=== PATIENT | male | born 1930 | race Caucasian/White ===

== ENCOUNTER 2016-09-28 13:59 | Emergency (ER) | payer MEDICARE, BC ==
[2016-09-28] MEDS ORDERED: HYDROMORPHONE HCL 1 MG/ML SYRINGE ONE (14:51)
[2016-09-28] MEDS ORDERED: ONDANSETRON 4 MG/2ML 2 ML VIAL ONE (14:51)
[2016-09-28] MEDS ORDERED: SODIUM CHLORIDE 0.9% 1,000 ML ONE (15:07)
[2016-09-28 15:19] LABS: ABSOLUTE NEUTROPHIL COUNT 8.2 K/mm3 (1.8-7.7); BASO % 0.2 % (0.2-1.0); EOS % 0.3 % (0.9-2.9); HEMATOCRIT 38.5 % (32.0-52.0); HEMOGLOBIN 12.9 gm/l (14.0-18.0); IMM NEUT% 0.4 % (0-1); LYMPH # 1.1 (1.0-4.8); LYMPH % 10.5 % (15-45); MEAN CELL VOLUME 95.5 fl (80.0-94.0); MEAN CORPUSCULAR HGB CONC 33.5 g/dl (33.0-37.0); MEAN PLATELET VOLUME 11.7 fl (7.4-10.4); MONO # 0.9 (0.0-0.8); MONO % 8.7 % (4-12); NEUT % 79.9 % (43-75); PLATELET COUNT 139 K/mm3 (130-400); RED CELL DISTRIBUTION WIDTH 12.6 % (11.5-14.5)
[2016-09-28 15:36] LABS: PLATELET ESTIMATE NORMAL (NORMAL)
[2016-09-28 15:38] LABS: ALB/GLOB RATIO 1.5 (>1.0); ALBUMIN 3.6 gm/dL (3.5-5.7)
--- NOTE | 2016-09-28 15:49 | RAD ---
LEFT SHOULDER 3 VIEWS HISTORY: Status post fall with left shoulder pain.. External rotation, Grashey, and transscapular views of the left shoulder. COMPARISON: None. ALIGNMENT: Relative elevation of the humeral head.. FRACTURE: No displaced acute fracture. ACROMIOCLAVICULAR JOINT: Minor degeneration. GLENOHUMERAL JOINT: Severe degeneration. ABNORMAL CALCIFICATIONS: None. VISIBLE LUNG BEDOYA: Evidence of prior sternotomy. Aortic arch calcification.. IMPRESSION: No gross malalignment or displaced acute fracture. Severe glenohumeral joint degeneration. Elevation of humeral head suggests rotator cuff tendinopathy.
--- NOTE | 2016-09-28 15:51 | RAD ---
LUMBAR SPINE 3 VIEWS HISTORY: Status post fall with low back pain. Frontal, lateral, and frontal cone down views of lumbar spine acquired. COMPARISON: None. ALIGNMENT: Mild dextroconvex curvature. Minor retrolisthesis at L1 to and L2-3 levels.. DISC SPACES: Severe narrowing at the L4-5 and L5-S1 levels, moderate to severe narrowing at L3-4.. COMPRESSION DEFORMITY: Moderate compression deformity of the L1 vertebra with mild associated retropulsion.. FACET JOINTS: Moderate degeneration at L4-5.. DISPLACED FRACTURE FRAGMENT: Minor retropulsion of posterior superior corner of L1.. 1. IMPRESSION: 2. Moderate compression fracture of the L1 vertebra with mild associated retropulsion. 3. Prominent changes of lower lumbar spondylosis with severe disc degeneration at the L4-5 and L5-S1 levels.
[2016-09-28 15:53] LABS: SPECIFIC GRAVITY 1.015 (1.001-1.030); URINE BILIRUBIN NEGATIVE (NEGATIVE); URINE BLOOD 1+ (NEGATIVE); URINE GLUCOSE (UA) NEGATIVE (NEGATIVE); URINE LEUKOCYTE ESTERASE TRACE (NEGATIVE); URINE NITRITE NEGATIVE (NEGATIVE); URINE PROTEIN NEGATIVE (NEGATIVE); URINE UROBILINOGEN NORMAL (0-1 mg/dl)
--- NOTE | 2016-09-28 15:53 | RAD ---
LEFT HIP AND AP PELVIS SERIES HISTORY: Status post fall with left hip pain.. Frontal view of the pelvis with frontal and frog-leg lateral views of the left hip. Correlation against 02/11/2012 study. PELVIC RING: Grossly intact. Interval right hip arthroplasty. HIP ALIGNMENT: Grossly unremarkable. HIP JOINT SPACES: Progressive superior joint space narrowing on the left compatible with severe osteoarthritic change. FRACTURE: No displaced fracture identified. Lumbar spine: Evidence of lower lumbar disc degeneration. IMPRESSION: 1. 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 2. Post arthroplasty appearance of the right hip. 3. Evidence of prominent lower lumbar disc degeneration.
--- NOTE | 2016-09-28 15:55 | RAD ---
PORTABLE CHEST RADIOGRAPH HISTORY: Status post fall 3 days ago. Frontal portable chest radiograph dated 09/28/2016. COMPARISON: None. FINDINGS: FOCAL AIRSPACE OPACITY: No gross airspace consolidation. PLEURAL EFFUSION: None. CARDIOMEDIASTINAL SILHOUETTE: Mild cardiomegaly with aortic tortuosity. Multiple surgical clips, correlate for prior bypass surgery. PNEUMOTHORAX: None identified. OSSEOUS STRUCTURES: Degenerative change of the shoulder girdle. IMPRESSION: No acute cardiopulmonary process noted. Correlate for prior bypass procedure. Degenerative change of the shoulder girdle.
[2016-09-28 16:04] LABS: URINE APPEARANCE SL CLOUDY; URINE COLOR YELLOW
[2016-09-28 16:13] LABS: URINE BACTERIA 3+; URINE EPITHELIAL CELLS 0-2 /hpf; URINE RBC 0-2 /hpf
[2016-09-28] MEDS ORDERED: CEFTRIAXONE 1 GRAM DUPLEX 50 ML IV ONE (16:28)
[2016-09-28 17:10] LABS: INR 1.54; PROTHROMBIN TIME 16.6 SECONDS (9.3-11.4)
== END 2016-09-28 18:12 | disposition home or self-care (01) ==
LOC: ED 13:59
DX: S32.019A Unspecified fracture of first lumbar vertebra, initial encounter for closed fracture (principal); N39.0 Urinary tract infection, site not specified; Z79.899 Other long term (current) drug therapy; W19.XXXA Unspecified fall, initial encounter
CPT/HCPCS: 85025; 87086; 80053; 87186; 85610; 84484; 81001; 87077; 71010; 73502; 72100; 73030; 96375; 99284; 96374; 93005; 99283; J1170; J2405; J7030; J0696